=== PATIENT | female | born 1950 | race Caucasian/White ===

== ENCOUNTER 2022-04-09 | Outpatient (CLI) | payer MEDICARE, BC, SELFPAY | END 2022-04-09 00:01 | disposition home or self-care (01) | LOC: AMB 04-20 12:08 | PROVIDERS: PCP Family Medicine; Visit Provider Family Medicine | DX: F10.129 Alcohol abuse with intoxication, unspecified (principal) | CPT/HCPCS: A0998 ==

== ENCOUNTER 2024-04-06 06:57 | Outpatient (CLI) | payer MEDICARE, BC, SELFPAY ==
--- NOTE | 2024-04-06 07:47 | W.ANESCHARGE ---
Anesthesia Charges Start Date/Time Anesthesia Start Date: 04/06/24 Anesthesia Start Time: 07:58 Stop Date/Time Anesthesia Stop Date: 04/06/24 Anesthesia Stop Time: 08:19 Summary Extremes of Age - Over 70 or under 1: [employer]
--- NOTE | 2024-04-06 08:59 | W.ANESCHARGE ---
Anesthesia Charges Start Date/Time Anesthesia Start Date: 04/06/24 Anesthesia Start Time: 07:58 Stop Date/Time Anesthesia Stop Date: 04/06/24 Anesthesia Stop Time: 08:19
== END 2024-04-06 06:58 | disposition home or self-care (01) ==
LOC: OP CLINIC 07:00
PROVIDERS: PCP Student in an Organized Health Care Education/Training Program; Visit Provider Internal Medicine Gastroenterology
DX: Z12.11 Encounter for screening for malignant neoplasm of colon (principal); Q43.8 Other specified congenital malformations of intestine
CPT/HCPCS: 00812; 45378; 99100; J2704